=== PATIENT | male | born 1975 | race Caucasian/White ===

== ENCOUNTER 2016-11-18 16:37 | Emergency (ER) | payer SELFPAY ==
--- NOTE | 2016-11-18 17:56 | EDM.PDOC ---
ED HPI Trauma - General Chief Complaint: Lower Extremity Injury/Pain Stated Complaint: PT HURT LT LEG Time Seen by Provider: 11/18/16 17:10 Source: Reports: Patient History Limitations: Reports: No limitations - History of Present Illness INITIAL COMMENTS - FREE TEXT/NARRATIVE: History of present illness: [41-year-old male presenting with acute left foot pain status post dropping a washing machine on it. Patient is swollen, erythematous with generalized tenderness to touch. Exam consistent with crushing injury.] Review of systems: As per history of present illness and below otherwise all systems reviewed and negative. Past medical history: As per history of present illness and as reviewed below otherwise noncontributory. Surgical history: As per history of present illness and as reviewed below otherwise noncontributory. Social history: No reported history of drug or alcohol abuse. Family history: As per history of present illness and as reviewed below otherwise noncontributory. Physical exam: HEENT: Atraumatic, normocephalic, pupils reactive, negative for conjunctival pallor or scleral icterus, mucous membranes moist, throat clear, neck supple, nontender, trachea midline. Lungs: Clear to auscultation, breath sounds equal bilaterally, chest nontender. Heart: S1S2, regular, negative for clicks, rubs, or JVD. Abdomen: Soft, nondistended, nontender. Negative for masses or hepatosplenomegaly. Negative for costovertebral tenderness. Pelvis: Stable nontender. Genitourinary: Deferred. Rectal: Deferred. Extremities: Left foot noted to be slightly swollen and erythematous with point tenderness, negative for cords or calf pain. Neurovascular unremarkable. Neuro: Awake, alert, oriented. Cranial nerves II through XII unremarkable. Cerebellum unremarkable. Motor and sensory unremarkable throughout. Exam nonfocal. Diagnostics: [X-ray of the left foot] Therapeutics: [] Impression: [Contusion] Plan: [Adria wrap RICE] Definitive disposition and diagnosis as appropriate pending reevaluation and review of above. Allergies/ADRs: Allergies No Known Allergies Allergy (Verified 11/18/16 16:54) Home Medications: Ambulatory Orders . [No Known Home Meds] 04/22/15 [Confirmed 11/18/16] Past Medical History - Past Surgical History Other Musculoskeletal Surgeries/Procedures:: knee surgery Social & Family History - Tobacco Use Smoking Status *Q: Current Every Day Smoker Years of Tobacco use: 28 - Recreational Drug Use Recreational Drug Use: No Review of Systems - Review of Systems Review Of Systems: See Below (See history of present illness) Trauma Exam - Physical Exam Exam: See Below (See history of present illness) Course - Vital Signs Last Recorded V/S: Last Vital Signs Temp 37.1 C 11/18/16 16:56 Pulse 70 11/18/16 16:56 Resp 16 11/18/16 16:56 BP 118/78 11/18/16 16:56 Pulse Ox 96 11/18/16 16:56 - Orders/Labs/Meds Orders: Active Orders 24 hr Category Date Time Status Ankle Min 3V Lt [CR] Stat Exams 11/18/16 17:13 Taken Foot 2V Lt [CR] Stat Exams 11/18/16 17:13 Taken Departure - Departure Time of Disposition: 18:16 Disposition: Home, Self-Care 01 Condition: good Clinical Impression: Contusion Qualifiers: Encounter type: initial encounter Contusion area: foot Laterality: left Qualified Code(s): S90.32XA - Contusion of left foot, initial encounter Instructions: Crush Injury, Fingers or Toes, [id number] Referrals: PCP,Stacey [Primary Care Provider] - Maria E Choudhury PA [Physician Furniture Polisher] - Forms: ED Department Discharge Additional Instructions: The following information is given to patients seen in the emergency department who are being discharged to home. This information is to outline your options for follow-up care. We provide all patients seen in our emergency department with a follow-up referral. The need for follow-up, as well as the timing and circumstances, are variable depending upon the specifics of your emergency department visit. If you don't have a primary care physician on staff, we will provide you with a referral. We always advise you to contact your personal physician following an emergency department visit to inform them of the circumstance of the visit and for follow-up with them and/or the need for any referrals to a consulting specialist. The emergency department will also refer you to a specialist when appropriate. This referral assures that you have the opportunity for follow-up care with a specialist. All of these measure are taken in an effort to provide you with optimal care, which includes your follow-up. Under all circumstances we always encourage you to contact your private physician who remains a resource for coordinating your care. When calling for follow-up care, please make the office aware that this follow-up is from your recent emergency room visit. If for any reason you are refused follow-up, please contact the [facility] Emergency Department at and asked to speak to the emergency department charge nurse. Take pain medication as directed, use Adria wrap and crutches as demonstrated Rest your foot elevated as much as possible you may use ice for the next 72 hours no longer than 20 minutes at a time with a barrier between your scan and the ice. Use the Adria wrap for support and comfort Followup with PCP 1-2 days Return to ED as needed as discussed [facility] [address] [place] [id number] - My Orders Last 24 Hours: My Active Orders 11/18/16 17:13 Ankle Min 3V Lt [CR] Stat Foot 2V Lt [CR] Stat - Assessment/Plan Last 24 Hours: My Active Orders 11/18/16 17:13 Ankle Min 3V Lt [CR] Stat Foot 2V Lt [CR] Stat
[2016-11-18 18:34] VITALS: BP 116/70
--- NOTE | 2016-11-19 10:18 | CR ---
EXAM DATE: 11/18/16 PATIENT'S AGE: 41 Patient: CHAPARRO MORENO Facility: [place], [place] Site . Site : 1975 Study: XRay Extremity foot [id number]/11/2017 5:49:40 PM Ordering Physician: Doctor Dougherty Final Report: LEFT FOOT AND ANKLE INDICATION: Injury. COMPARISON: None. FINDINGS/IMPRESSION: Mild soft tissue swelling over the lateral malleolus and over the dorsum of the foot. No acute fracture or dislocation identified in the left foot or ankle. Dictated by David Montgomery MD @ 11/18/2016 5:59:22 PM Dictated by: David Montgomery MD @ 11/18/2016 18:00:25 (Electronic Signature) Report Signed by Proxy and Original Signed Document filed in the Medical Record. MTDD
--- NOTE | 2016-11-19 10:19 | CR ---
EXAM DATE: 11/18/16 PATIENT'S AGE: 41 Patient: CHAPARRO MORENO Facility: [place], [place] Site . Site : 1975 Study: XRay Extremity ankle [id number]/11/2017 5:50:00 PM Ordering Physician: Doctor Dougherty Final Report: LEFT FOOT AND ANKLE INDICATION: Injury. COMPARISON: None. FINDINGS/IMPRESSION: Mild soft tissue swelling over the lateral malleolus and over the dorsum of the foot. No acute fracture or dislocation identified in the left foot or ankle. Dictated by David Montgomery MD @ 11/18/2016 5:59:22 PM Dictated by: David Montgomery MD @ 11/18/2016 18:00:12 (Electronic Signature) Report Signed by Proxy and Original Signed Document filed in the Medical Record. MTDD
== END 2016-11-18 18:32 | disposition home or self-care (01) ==
LOC: MW.ED 16:37
DX: S90.32XA Contusion of left foot, initial encounter (principal); F17.200 Nicotine dependence, unspecified, uncomplicated; W20.8XXA Other cause of strike by thrown, projected or falling object, initial encounter
CPT/HCPCS: 73610-26-LT; 73610-LT; 73620-26-LT; 73620-LT; 99283

== ENCOUNTER 2017-02-18 15:37 | Emergency (ER) | payer SELFPAY ==
[2017-02-18] MEDS ORDERED: Benzocaine 20% Topical Spray UD MUCMEM ONE (15:47)
[2017-02-18] MEDS ORDERED: Lidocaine 2% Viscous Solution 15 ML Cup PO ONE (15:47)
--- NOTE | 2017-02-18 16:04 | EDM.PDOC ---
ED HPI GENERAL MEDICAL PROBLEM - General Chief Complaint: General Stated Complaint: TOOTH PAIN Time Seen by Provider: 02/18/17 15:40 Source of Information: Reports: Patient History Limitations: Reports: No Limitations - History of Present Illness INITIAL COMMENTS - FREE TEXT/NARRATIVE: History of present illness: [41-year-old male comes in complaining of dental abscess to right lower jaw. Patient has missing teeth at the area of 28 and 29 with obvious infection at the gumline.] Review of systems: As per history of present illness and below otherwise all systems reviewed and negative. Past medical history: As per history of present illness and as reviewed below otherwise noncontributory. Surgical history: As per history of present illness and as reviewed below otherwise noncontributory. Social history: No reported history of drug or alcohol abuse. Family history: As per history of present illness and as reviewed below otherwise noncontributory. Physical exam: HEENT: Atraumatic, normocephalic, pupils reactive, negative for conjunctival pallor or scleral icterus, mucous membranes moist, throat clear, neck supple, nontender, trachea midline. Lungs: Clear to auscultation, breath sounds equal bilaterally, chest nontender. Heart: S1S2, regular, negative for clicks, rubs, or JVD. Abdomen: Soft, nondistended, nontender. Negative for masses or hepatosplenomegaly. Negative for costovertebral tenderness. Pelvis: Stable nontender. Genitourinary: Deferred. Rectal: Deferred. Extremities: Atraumatic, negative for cords or calf pain. Neurovascular unremarkable. Neuro: Awake, alert, oriented. Cranial nerves II through XII unremarkable. Cerebellum unremarkable. Motor and sensory unremarkable throughout. Exam nonfocal. Skin: Right lower mandible with a 3 cm bump it is painful to touch and it is consistent with the area of infection at the gum. Patient knowledge need to get into [facility] but was looking for some assistance at this time save the abscess as noted above in the skin complaint patient's Global assessment is benign Diagnostics: [] Therapeutics: [Dental balls] Impression: [Dental abscess] Plan: [Antibiotics brief run of pain medication dental follow-up] Definitive disposition and diagnosis as appropriate pending reevaluation and review of above. Right Lower Tooth/Teeth Pain Score (Numeric/FACES): 7 - Related Data Allergies Allergy/AdvReac Type Severity Reaction Status Date / Time bee venom protein (honey bee) Allergy Anaphylactic Verified 11/18/16 18:23 Shock Home Meds: Home Meds Amoxicillin/Potassium Clav [Augmentin 875-125 Tablet] 1 each PO BID #20 tablet 02/18/17 [Rx] Past Medical History - Past Health History Medical/Surgical History: Denies Medical/Surgical History Gastrointestinal History: Reports: None Musculoskeletal History: Reports: None - Past Surgical History GI Surgical History: Reports: Hernia, Abdominal Musculoskeletal Surgical History: Reports: Other (See Below) Other Musculoskeletal Surgeries/Procedures:: left knee surgery Social & Family History - Family History Family Medical History: Noncontributory - Tobacco Use Smoking Status *Q: Current Every Day Smoker Years of Tobacco use: 30 Packs/Tins Daily: 0.1 Second Hand Smoke Exposure: Yes - Caffeine Use Caffeine Use: Reports: None - Alcohol Use Days Per Week of Alcohol Use: 2 Number of Drinks Per Day: 4 Total Drinks Per Week: 8 - Recreational Drug Use Recreational Drug Use: Yes Recreational Drug Type: Reports: Marijuana/Hashish Recreational Drug Use Frequency: Daily Recreational Drug Last Use: "today" ED ROS GENERAL - Review of Systems Review Of Systems: See Below (See history of present illness) ED EXAM, GENERAL - Physical Exam Exam: See Below (History of present illness) Course - Vital Signs Last Recorded V/S: Last Vital Signs Temp 36.4 C 02/18/17 15:42 Pulse 73 02/18/17 15:42 Resp 18 02/18/17 15:42 BP 123/79 02/18/17 15:42 Pulse Ox 95 02/18/17 15:42 - Orders/Labs/Meds Meds: Medications Discontinued Medications Generic Name Dose Route Start Last Admin Trade Name Fadi PRN Reason Stop Dose Admin Benzocaine 2 each 02/18/17 15:47 02/18/17 15:57 Hurricaine One 20% MUCMEM 02/18/17 15:48 2 each ONETIME ONE Administration Lidocaine HCl 15 ml 02/18/17 15:47 02/18/17 15:57 Xylocaine 2% Viscous PO 02/18/17 15:48 15 ml ONETIME ONE Administration Departure - Departure Time of Disposition: 16:03 Disposition: Home, Self-Care 01 Condition: Good Clinical Impression: Dental abscess - Discharge Information Prescriptions: Amoxicillin/Potassium Clav [Augmentin 875-125 Tablet] 1 each PO BID #20 tablet Forms: ED Department Discharge Additional Instructions: The following information is given to patients seen in the emergency department who are being discharged to home. This information is to outline your options for follow-up care. We provide all patients seen in our emergency department with a follow-up referral. The need for follow-up, as well as the timing and circumstances, are variable depending upon the specifics of your emergency department visit. If you don't have a primary care physician on staff, we will provide you with a referral. We always advise you to contact your personal physician following an emergency department visit to inform them of the circumstance of the visit and for follow-up with them and/or the need for any referrals to a consulting specialist. The emergency department will also refer you to a specialist when appropriate. This referral assures that you have the opportunity for follow-up care with a specialist. All of these measure are taken in an effort to provide you with optimal care, which includes your follow-up. Under all circumstances we always encourage you to contact your private physician who remains a resource for coordinating your care. When calling for follow-up care, please make the office aware that this follow-up is from your recent emergency room visit. If for any reason you are refused follow-up, please contact the [facility] Emergency Department at and asked to speak to the emergency department charge nurse. Take medication as discussed Follow-up with the dentist GLORIA Return to ED as needed as discussed
[2017-02-18 16:23] VITALS: BP 119/82
== END 2017-02-18 16:15 | disposition home or self-care (01) ==
LOC: MW.ED 15:37
DX: K04.7 Periapical abscess without sinus (principal); F17.210 Nicotine dependence, cigarettes, uncomplicated; Z91.030 Bee allergy status; Z98.890 Other specified postprocedural states
CPT/HCPCS: 99282; A9270; 99283

== ENCOUNTER 2017-09-28 07:40 | Emergency (ER) | payer SELFPAY ==
[2017-09-28 07:59] VITALS: BP 143/98
--- NOTE | 2017-09-28 08:01 | EDM.PDOC ---
ED HPI GENERAL MEDICAL PROBLEM - General Chief Complaint: General Stated Complaint: ABSCESSED TOOTH Time Seen by Provider: 09/28/17 07:41 - History of Present Illness INITIAL COMMENTS - FREE TEXT/NARRATIVE: HISTORY AND PHYSICAL: History of present illness: Patient 42-year-old male presents with a concern of dental pain and right jaw swelling is been worse over last several days he denies fever chills nausea vomiting or other complaints he denies allergies not secured a dental appointment as of yet Review of systems: As per history of present illness and below otherwise all systems reviewed and negative. Past medical history: As per history of present illness and as reviewed below otherwise noncontributory. Surgical history: As per history of present illness and as reviewed below otherwise noncontributory. Social history: No reported history of drug or alcohol abuse. Family history: As per history of present illness and as reviewed below otherwise noncontributory. Physical exam: HEENT: Atraumatic, normocephalic, pupils reactive, negative for conjunctival pallor or scleral icterus, mucous membranes moist, throat clear, neck supple, nontender, trachea midline. Generally poor dentition with multiple dental caries noted gingival edema in the region of the right lower molar and right mandibular swelling Lungs: Clear to auscultation, breath sounds equal bilaterally, chest nontender. Heart: S1S2, regular, negative for clicks, rubs, or JVD. Abdomen: Soft, nondistended, nontender. Negative for masses or hepatosplenomegaly. Negative for costovertebral tenderness. Pelvis: Stable nontender. Genitourinary: Deferred. Rectal: Deferred. Extremities: Atraumatic, negative for cords or calf pain. Neurovascular unremarkable. Neuro: Awake, alert, oriented. Cranial nerves II through XII unremarkable. Cerebellum unremarkable. Motor and sensory unremarkable throughout. Exam nonfocal. Diagnostics: None Therapeutics: None Impression: Over 1 dentalgia #2 multiple dental caries #3 dental abscess Definitive disposition and diagnosis as appropriate pending reevaluation and review of above. Right Lower Tooth/Teeth Pain Score (Numeric/FACES): 5 - Related Data Allergies Allergy/AdvReac Type Severity Reaction Status Date / Time bee venom protein (honey bee) Allergy Anaphylactic Verified 09/28/17 07:47 Shock Home Meds: Home Meds . [No Known Home Meds] 09/28/17 [History] Past Medical History - Past Health History Medical/Surgical History: Denies Medical/Surgical History Gastrointestinal History: Reports: None Musculoskeletal History: Reports: None - Past Surgical History GI Surgical History: Reports: Hernia, Abdominal Musculoskeletal Surgical History: Reports: Other (See Below) Other Musculoskeletal Surgeries/Procedures:: left knee surgery Social & Family History - Family History Family Medical History: Noncontributory - Tobacco Use Smoking Status *Q: Current Every Day Smoker Years of Tobacco use: 30 Packs/Tins Daily: 0.1 Second Hand Smoke Exposure: Yes - Caffeine Use Caffeine Use: Reports: None - Alcohol Use Days Per Week of Alcohol Use: 2 Number of Drinks Per Day: 4 Total Drinks Per Week: 8 - Recreational Drug Use Recreational Drug Use: Yes Recreational Drug Type: Reports: Marijuana/Hashish Recreational Drug Use Frequency: Daily Recreational Drug Last Use: "today" ED ROS GENERAL - Review of Systems Review Of Systems: ROS reveals no pertinent complaints other than HPI. ED EXAM, GENERAL - Physical Exam Exam: See Below (See dictation) Course - Vital Signs Last Recorded V/S: Last Vital Signs Temp 37.8 C 09/28/17 07:48 Pulse 90 09/28/17 07:48 Resp 20 09/28/17 07:48 BP 143/98 H 09/28/17 07:48 Pulse Ox 94 L 09/28/17 07:48 Departure - Departure Time of Disposition: 08:00 Disposition: Home, Self-Care 01 Condition: Good Clinical Impression: Dentalgia, Dental abscess - Discharge Information Referrals: PCP,None [Primary Care Provider] - Additional Instructions: The following information is given to patients seen in the emergency department who are being discharged to home. This information is to outline your options for follow-up care. We provide all patients seen in our emergency department with a follow-up referral. The need for follow-up, as well as the timing and circumstances, are variable depending upon the specifics of your emergency department visit. If you don't have a primary care physician on staff, we will provide you with a referral. We always advise you to contact your personal physician following an emergency department visit to inform them of the circumstance of the visit and for follow-up with them and/or the need for any referrals to a consulting specialist. The emergency department will also refer you to a specialist when appropriate. This referral assures that you have the opportunity for followup care with a specialist. All of these measure are taken in an effort to provide you with optimal care, which includes your followup. Under all circumstances we always encourage you to contact your private physician who remains a resource for coordinating your care. When calling for followup care, please make the office aware that this follow-up is from your recent emergency room visit. If for any reason you are refused follow-up, please contact the [facility] emergency department at and asked to speak to the emergency department charge nurse. James Caro Tylenol 3 as prescribed follow-up dentist as discussed return as needed as discussed
== END 2017-09-28 08:07 | disposition home or self-care (01) ==
LOC: MW.ED 07:40
DX: K04.7 Periapical abscess without sinus (principal); K02.9 Dental caries, unspecified; F17.210 Nicotine dependence, cigarettes, uncomplicated; Z91.030 Bee allergy status
CPT/HCPCS: 99282

== ENCOUNTER 2017-10-04 07:17 | Emergency (ER) | payer SELFPAY ==
[2017-10-04 07:43] VITALS: BP 138/95
--- NOTE | 2017-10-04 08:14 | EDM.PDOC ---
ED HPI GENERAL MEDICAL PROBLEM - General Chief Complaint: ENT Problem Stated Complaint: ABCESSED TOOTH Time Seen by Provider: 10/04/17 07:25 - History of Present Illness INITIAL COMMENTS - FREE TEXT/NARRATIVE: HISTORY AND PHYSICAL: History of present illness: Patient is 42-year-old male presents with a concern of right jaw swelling dental abscess he was seen approximately 1 week prior nonpenicillin he's also been on Tylenol 3 he is not secured dental follow-up there's been no fever chills nausea vomiting or other complaints Review of systems: As per history of present illness and below otherwise all systems reviewed and negative. Past medical history: As per history of present illness and as reviewed below otherwise noncontributory. Surgical history: As per history of present illness and as reviewed below otherwise noncontributory. Social history: No reported history of drug or alcohol abuse. Family history: As per history of present illness and as reviewed below otherwise noncontributory. Physical exam: HEENT: Atraumatic, normocephalic, pupils reactive, negative for conjunctival pallor or scleral icterus, mucous membranes moist, throat clear, neck supple, nontender, trachea midline. Generally poor dentition multiple dental caries noted right mandibular swelling Lungs: Clear to auscultation, breath sounds equal bilaterally, chest nontender. Heart: S1S2, regular, negative for clicks, rubs, or JVD. Abdomen: Soft, nondistended, nontender. Negative for masses or hepatosplenomegaly. Negative for costovertebral tenderness. Pelvis: Stable nontender. Genitourinary: Deferred. Rectal: Deferred. Extremities: Atraumatic, negative for cords or calf pain. Neurovascular unremarkable. Neuro: Awake, alert, oriented. Cranial nerves II through XII unremarkable. Cerebellum unremarkable. Motor and sensory unremarkable throughout. Exam nonfocal. Diagnostics: None Therapeutics: None Impression: #1 dentalgia #2 dental abscess #3 medical noncompliance Definitive disposition and diagnosis as appropriate pending reevaluation and review of above. dental pain Pain Score (Numeric/FACES): 7 - Related Data Allergies Allergy/AdvReac Type Severity Reaction Status Date / Time bee venom protein (honey bee) Allergy Anaphylactic Verified 10/04/17 07:22 Shock Home Meds: Home Meds . [Unable to Verify Home Med List] 10/04/17 [History] Past Medical History - Past Health History Medical/Surgical History: Denies Medical/Surgical History HEENT History: Reports: None Cardiovascular History: Reports: None Respiratory History: Reports: None Gastrointestinal History: Reports: None Genitourinary History: Reports: None Musculoskeletal History: Reports: None Neurological History: Reports: None Psychiatric History: Reports: None Endocrine/Metabolic History: Reports: None Hematologic History: Reports: None Immunologic History: Reports: None Oncologic (Cancer) History: Reports: None Dermatologic History: Reports: None - Past Surgical History Head Surgeries/Procedures: Reports: None HEENT Surgical History: Reports: None Cardiovascular Surgical History: Reports: None Respiratory Surgical History: Reports: None GI Surgical History: Reports: Hernia, Abdominal Male Surgical History: Reports: None Endocrine Surgical History: Reports: None Neurological Surgical History: Reports: None Musculoskeletal Surgical History: Reports: Other (See Below) Other Musculoskeletal Surgeries/Procedures:: left knee surgery Oncologic Surgical History: Reports: None Dermatological Surgical History: Reports: None Social & Family History - Family History Family Medical History: Noncontributory - Tobacco Use Smoking Status *Q: Current Every Day Smoker Years of Tobacco use: 15 Packs/Tins Daily: 0.5 Second Hand Smoke Exposure: Yes - Caffeine Use Caffeine Use: Reports: Soda - Alcohol Use Days Per Week of Alcohol Use: 2 Number of Drinks Per Day: 4 Total Drinks Per Week: 8 - Recreational Drug Use Recreational Drug Use: Yes Recreational Drug Type: Reports: Marijuana/Hashish Recreational Drug Use Frequency: Weekly Recreational Drug Last Use: "today" ED ROS GENERAL - Review of Systems Review Of Systems: ROS reveals no pertinent complaints other than HPI. ED EXAM, GENERAL - Physical Exam Exam: See Below (See dictation) Course - Vital Signs Last Recorded V/S: Last Vital Signs Temp 36.2 C 10/04/17 07:26 Pulse 85 10/04/17 07:42 Resp 18 10/04/17 07:26 BP 138/95 H 10/04/17 07:42 Pulse Ox 97 10/04/17 07:26 Departure - Departure Time of Disposition: 08:13 Disposition: Home, Self-Care 01 Condition: Good Clinical Impression: Dental abscess, Dental caries, Medical non-compliance - Discharge Information Instructions: Dental Abscess, [id number] Referrals: PCP,None [Primary Care Provider] - Forms: ED Department Discharge Additional Instructions: The following information is given to patients seen in the emergency department who are being discharged to home. This information is to outline your options for follow-up care. We provide all patients seen in our emergency department with a follow-up referral. The need for follow-up, as well as the timing and circumstances, are variable depending upon the specifics of your emergency department visit. If you don't have a primary care physician on staff, we will provide you with a referral. We always advise you to contact your personal physician following an emergency department visit to inform them of the circumstance of the visit and for follow-up with them and/or the need for any referrals to a consulting specialist. The emergency department will also refer you to a specialist when appropriate. This referral assures that you have the opportunity for followup care with a specialist. All of these measure are taken in an effort to provide you with optimal care, which includes your followup. Under all circumstances we always encourage you to contact your private physician who remains a resource for coordinating your care. When calling for followup care, please make the office aware that this follow-up is from your recent emergency room visit. If for any reason you are refused follow-up, please contact the [facility] emergency department at and asked to speak to the emergency department charge nurse. Clindamycin as prescribed Motrin/Tylenol as directed follow-up dentist GLORIA as discussed return as needed as discussed
== END 2017-10-04 08:10 | disposition home or self-care (01) ==
LOC: MW.ED 07:17
DX: K04.7 Periapical abscess without sinus (principal); K02.9 Dental caries, unspecified; Z91.14 Patient's other noncompliance with medication regimen; F17.210 Nicotine dependence, cigarettes, uncomplicated; Z91.030 Bee allergy status
CPT/HCPCS: 99282

== ENCOUNTER 2018-11-01 17:21 | Emergency (ER) | payer SELFPAY ==
--- NOTE | 2018-11-01 17:33 | EDM.PDOC ---
ED HPI GENERAL MEDICAL PROBLEM - General Chief Complaint: General Stated Complaint: MEDICAL CLEARANCE Time Seen by Provider: 11/01/18 17:30 - History of Present Illness INITIAL COMMENTS - FREE TEXT/NARRATIVE: HISTORY AND PHYSICAL: History of present illness: Patient's 43-year-old white male in custody of law enforcement who presents for medical clearance patient is without complaints Review of systems: As per history of present illness and below otherwise all systems reviewed and negative. Past medical history: As per history of present illness and as reviewed below otherwise noncontributory. Surgical history: As per history of present illness and as reviewed below otherwise noncontributory. Social history: No reported history of drug or alcohol abuse. Family history: As per history of present illness and as reviewed below otherwise noncontributory. Physical exam: HEENT: Atraumatic, normocephalic, pupils reactive, negative for conjunctival pallor or scleral icterus, mucous membranes moist, throat clear, neck supple, nontender, trachea midline. Lungs: Clear to auscultation, breath sounds equal bilaterally, chest nontender. Heart: S1S2, regular, negative for clicks, rubs, or JVD. Abdomen: Soft, nondistended, nontender. Negative for masses or hepatosplenomegaly. Negative for costovertebral tenderness. Pelvis: Stable nontender. Genitourinary: Deferred. Rectal: Deferred. Extremities: Atraumatic, negative for cords or calf pain. Neurovascular unremarkable. Neuro: Awake, alert, oriented. Cranial nerves II through XII unremarkable. Cerebellum unremarkable. Motor and sensory unremarkable throughout. Exam nonfocal. Diagnostics: None Therapeutics: None Impression: Medically clear for incarceration Definitive disposition and diagnosis as appropriate pending reevaluation and review of above. - Related Data Allergies Allergy/AdvReac Type Severity Reaction Status Date / Time bee venom protein (honey bee) Allergy Anaphylactic Verified 10/04/17 07:22 Shock Home Meds: Home Meds . [Unable to Verify Home Med List] 10/04/17 [History] Past Medical History - Past Health History Medical/Surgical History: Denies Medical/Surgical History HEENT History: Reports: None Cardiovascular History: Reports: None Respiratory History: Reports: None Gastrointestinal History: Reports: None Genitourinary History: Reports: None Musculoskeletal History: Reports: None Neurological History: Reports: None Psychiatric History: Reports: None Endocrine/Metabolic History: Reports: None Hematologic History: Reports: None Immunologic History: Reports: None Oncologic (Cancer) History: Reports: None Dermatologic History: Reports: None - Past Surgical History Head Surgeries/Procedures: Reports: None HEENT Surgical History: Reports: None Cardiovascular Surgical History: Reports: None Respiratory Surgical History: Reports: None GI Surgical History: Reports: Hernia, Abdominal Male Surgical History: Reports: None Endocrine Surgical History: Reports: None Neurological Surgical History: Reports: None Musculoskeletal Surgical History: Reports: Other (See Below) Other Musculoskeletal Surgeries/Procedures:: left knee surgery Oncologic Surgical History: Reports: None Dermatological Surgical History: Reports: None Social & Family History - Family History Family Medical History: Noncontributory - Caffeine Use Caffeine Use: Reports: Soda ED ROS GENERAL - Review of Systems Review Of Systems: ROS reveals no pertinent complaints other than HPI. ED EXAM, GENERAL - Physical Exam Exam: See Below (Dictation) Departure - Departure Time of Disposition: 17:32 Disposition: Home, Self-Care 01 Condition: Good Clinical Impression: Medical clearance for incarceration - Discharge Information Additional Instructions: The following information is given to patients seen in the emergency department who are being discharged to home. This information is to outline your options for follow-up care. We provide all patients seen in our emergency department with a follow-up referral. The need for follow-up, as well as the timing and circumstances, are variable depending upon the specifics of your emergency department visit. If you don't have a primary care physician on staff, we will provide you with a referral. We always advise you to contact your personal physician following an emergency department visit to inform them of the circumstance of the visit and for follow-up with them and/or the need for any referrals to a consulting specialist. The emergency department will also refer you to a specialist when appropriate. This referral assures that you have the opportunity for followup care with a specialist. All of these measure are taken in an effort to provide you with optimal care, which includes your followup. Under all circumstances we always encourage you to contact your private physician who remains a resource for coordinating your care. When calling for followup care, please make the office aware that this follow-up is from your recent emergency room visit. If for any reason you are refused follow-up, please contact the [facility] emergency department at and asked to speak to the emergency department charge nurse. Follow-up primary medical doctor as needed as discussed return as needed as discussed
== END 2018-11-01 17:39 | disposition home or self-care (01) ==
LOC: MW.ED 17:21
DX: Z02.89 Encounter for other administrative examinations (principal); Z91.030 Bee allergy status
CPT/HCPCS: 99282

== ENCOUNTER 2018-11-02 20:04 | Emergency (ER) | payer SELFPAY ==
[2018-11-02 20:24] VITALS: BP 146/100
--- NOTE | 2018-11-02 20:25 | EDM.PDOC ---
ED HPI GENERAL MEDICAL PROBLEM - General Chief Complaint: General Stated Complaint: PT HAS BODY PAIN Time Seen by Provider: 11/02/18 20:14 - History of Present Illness INITIAL COMMENTS - FREE TEXT/NARRATIVE: HISTORY AND PHYSICAL: History of present illness: Patient's 43-year-old white male presents for medical screening exam he was arrested yesterday and was concerned about pain to his bilateral forearms right elbow lower back. Review of systems: As per history of present illness and below otherwise all systems reviewed and negative. Past medical history: As per history of present illness and as reviewed below otherwise noncontributory. Surgical history: As per history of present illness and as reviewed below otherwise noncontributory. Social history: No reported history of drug or alcohol abuse. Family history: As per history of present illness and as reviewed below otherwise noncontributory. Physical exam: HEENT: Atraumatic, normocephalic, pupils reactive, negative for conjunctival pallor or scleral icterus, mucous membranes moist, throat clear, neck supple, nontender, trachea midline. Lungs: Clear to auscultation, breath sounds equal bilaterally, chest nontender. Heart: S1S2, regular, negative for clicks, rubs, or JVD. Abdomen: Soft, nondistended, nontender. Negative for masses or hepatosplenomegaly. Negative for costovertebral tenderness. Pelvis: Stable nontender. Genitourinary: Deferred. Rectal: Deferred. Extremities: Patient has abrasions and contusions of his right forearm some minor contusions of his left forearm he got some swelling in the region of this right elbow he's had no crepitation or point tenderness. Neuro: Awake, alert, oriented. Cranial nerves II through XII unremarkable. Cerebellum unremarkable. Motor and sensory unremarkable throughout. Exam nonfocal. Back: Patient has no vertebral body or point tenderness is got some mild paravertebral tenderness at the level lumbar spine. Diagnostics: Patient declines diagnostic Therapeutics: None Impression: #1 medical screening exam #2 multiple contusions/abrasions Definitive disposition and diagnosis as appropriate pending reevaluation and review of above. - Related Data Allergies Allergy/AdvReac Type Severity Reaction Status Date / Time bee venom protein (honey bee) Allergy Anaphylactic Verified 10/04/17 07:22 Shock Home Meds: Home Meds . [No Known Home Meds] 11/02/18 [History] Past Medical History - Past Health History Medical/Surgical History: Denies Medical/Surgical History HEENT History: Reports: None Cardiovascular History: Reports: None Respiratory History: Reports: None Gastrointestinal History: Reports: None Genitourinary History: Reports: None Musculoskeletal History: Reports: None Neurological History: Reports: None Psychiatric History: Reports: None Endocrine/Metabolic History: Reports: None Hematologic History: Reports: None Immunologic History: Reports: None Oncologic (Cancer) History: Reports: None Dermatologic History: Reports: None - Past Surgical History Head Surgeries/Procedures: Reports: None HEENT Surgical History: Reports: None Cardiovascular Surgical History: Reports: None Respiratory Surgical History: Reports: None GI Surgical History: Reports: Hernia, Abdominal Male Surgical History: Reports: None Endocrine Surgical History: Reports: None Neurological Surgical History: Reports: None Musculoskeletal Surgical History: Reports: Other (See Below) Other Musculoskeletal Surgeries/Procedures:: left knee surgery Oncologic Surgical History: Reports: None Dermatological Surgical History: Reports: None Social & Family History - Family History Family Medical History: Noncontributory - Caffeine Use Caffeine Use: Reports: Soda ED ROS GENERAL - Review of Systems Review Of Systems: ROS reveals no pertinent complaints other than HPI. ED EXAM, GENERAL - Physical Exam Exam: See Below (See dictation) Departure - Departure Time of Disposition: 20:24 Disposition: Home, Self-Care 01 Condition: Good Clinical Impression: Encounter for medical screening examination, Multiple contusions, Abrasion - Discharge Information Referrals: PCP,None [Primary Care Provider] - Additional Instructions: The following information is given to patients seen in the emergency department who are being discharged to home. This information is to outline your options for follow-up care. We provide all patients seen in our emergency department with a follow-up referral. The need for follow-up, as well as the timing and circumstances, are variable depending upon the specifics of your emergency department visit. If you don't have a primary care physician on staff, we will provide you with a referral. We always advise you to contact your personal physician following an emergency department visit to inform them of the circumstance of the visit and for follow-up with them and/or the need for any referrals to a consulting specialist. The emergency department will also refer you to a specialist when appropriate. This referral assures that you have the opportunity for followup care with a specialist. All of these measure are taken in an effort to provide you with optimal care, which includes your followup. Under all circumstances we always encourage you to contact your private physician who remains a resource for coordinating your care. When calling for followup care, please make the office aware that this follow-up is from your recent emergency room visit. If for any reason you are refused follow-up, please contact the [facility] emergency department at and asked to speak to the emergency department charge nurse. Follow-up primary medical doctor as needed as discussed return as needed as discussed Motrin/Tylenol as directed
== END 2018-11-02 20:41 | disposition home or self-care (01) ==
LOC: MW.ED 20:04
DX: S50.12XA Contusion of left forearm, initial encounter (principal); S50.11XA Contusion of right forearm, initial encounter; M25.421 Effusion, right elbow; Z91.030 Bee allergy status; X58.XXXA Exposure to other specified factors, initial encounter
CPT/HCPCS: 99283

== ENCOUNTER 2019-04-13 16:38 | Emergency (ER) | payer SELFPAY ==
--- NOTE | 2019-04-13 16:50 | EDM.PDOC ---
ED HPI GENERAL MEDICAL PROBLEM - General Chief Complaint: General Stated Complaint: TOOTHACHE Time Seen by Provider: 04/13/19 16:45 Source of Information: Reports: Patient History Limitations: Reports: No Limitations - History of Present Illness INITIAL COMMENTS - FREE TEXT/NARRATIVE: HISTORY AND PHYSICAL: History of present illness: Patient is a 43-year-old male who presents to the emergency room today with complaints of dental abscess 3 or 4 days. Patient does have multiple dental caries throughout. Has noticed some soft tissue swelling and pain to the right upper dental line. Patient denies any fever, chills, headache, change in vision , syncope or near syncope. Denies any chest pain, back pain, shortness of breath or cough. Denies any abdominal pain, nausea, vomiting, diarrhea, constipation or dysuria. Has not noted any blood in urine or stool. Patient has been eating and drinking appropriately. Review of systems: As per history of present illness and below otherwise all systems reviewed and negative. Past medical history: As per history of present illness and as reviewed below otherwise noncontributory. Surgical history: As per history of present illness and as reviewed below otherwise noncontributory. Social history: See social history for further information Family history: As per history of present illness and as reviewed below otherwise noncontributory. Physical exam: General: Well-developed and well-nourished 43-year-old male. Alert and oriented. Nontoxic appearing and in no acute distress. HEENT: Atraumatic, normocephalic, pupils equal and reactive bilaterally, negative for conjunctival pallor or scleral icterus, mucous membranes moist, TMs normal bilaterally, multiple dental caries noted throughout, he does have soft tissue gum swelling to the right upper posterior jawline, this is visible externally. His throat clear, neck supple, nontender, trachea midline. No drooling or trismus noted. No meningeal signs. No hot potato voice noted. Lungs: Clear to auscultation, breath sounds equal bilaterally, chest nontender. Heart: S1S2, regular rate and rhythm without overt murmur Abdomen: Soft, nondistended, nontender. Skin: Intact, warm, dry. No lesions or rashes noted. Extremities: Atraumatic, moves all extremities per self without difficulty or deficits, negative for cords or calf pain. Neurovascular unremarkable. Neuro: Awake, alert, oriented. Cranial nerves II through XII unremarkable. Cerebellum unremarkable. Motor and sensory unremarkable throughout. Exam nonfocal. Notes: We discussed the importance of following up with a dentist. Supportive care measures were reviewed and discussed. Voices understanding and is agreeable to plan of care. Denies any further questions or concerns at this time. Diagnostics: None Therapeutics: Dental Abscess Prescription: Clindamycin Impression: Dental Abscess Dental Carries Plan: 1. Please take the antibiotic as prescribed. 2. Tylenol and/or ibuprofen as needed for pain management. "Tooth Balls" have been given to you; apply along the gumline every 2-3 hours as needed. Do not swallow these; external use only. 3. Follow-up with a dentist for definitive care. Return to the ED as needed and as discussed. Definitive disposition and diagnosis as appropriate pending reevaluation and review of above. - Related Data Allergies Allergy/AdvReac Type Severity Reaction Status Date / Time bee venom protein (honey bee) Allergy Anaphylactic Verified 10/04/17 07:22 Shock Home Meds: Home Meds Clindamycin HCl [Cleocin HCl] 300 mg PO TID 10 Days #30 capsule 04/13/19 [Rx] Past Medical History - Past Health History Medical/Surgical History: Denies Medical/Surgical History HEENT History: Reports: None Cardiovascular History: Reports: None Respiratory History: Reports: None Gastrointestinal History: Reports: None Genitourinary History: Reports: None Musculoskeletal History: Reports: None Neurological History: Reports: None Psychiatric History: Reports: None Endocrine/Metabolic History: Reports: None Hematologic History: Reports: None Immunologic History: Reports: None Oncologic (Cancer) History: Reports: None Dermatologic History: Reports: None - Infectious Disease History Infectious Disease History: Reports: Chicken Pox - Past Surgical History Head Surgeries/Procedures: Reports: None HEENT Surgical History: Reports: None Cardiovascular Surgical History: Reports: None Respiratory Surgical History: Reports: None GI Surgical History: Reports: Hernia, Abdominal Male Surgical History: Reports: None Endocrine Surgical History: Reports: None Neurological Surgical History: Reports: None Musculoskeletal Surgical History: Reports: Other (See Below) Other Musculoskeletal Surgeries/Procedures:: left knee surgery Oncologic Surgical History: Reports: None Dermatological Surgical History: Reports: None Social & Family History - Family History Family Medical History: Noncontributory - Caffeine Use Caffeine Use: Reports: Soda ED ROS GENERAL - Review of Systems Review Of Systems: ROS reveals no pertinent complaints other than HPI. ED EXAM, GENERAL - Physical Exam Exam: See Below (See dictation) Course - Orders/Labs/Meds Meds: Medications Discontinued Medications Generic Name Dose Route Start Last Admin Trade Name Fadi PRN Reason Stop Dose Admin Benzocaine 2 each 04/13/19 16:45 Hurricaine One 20% MUCMEM 04/13/19 16:46 ONETIME ONE Lidocaine HCl 15 ml 04/13/19 16:45 Xylocaine 2% Viscous PO 04/13/19 16:46 ONETIME ONE Departure - Departure Time of Disposition: 16:49 Disposition: Home, Self-Care 01 Clinical Impression: Dental abscess, Dental caries - Discharge Information Prescriptions: Clindamycin HCl [Cleocin HCl] 300 mg PO TID 10 Days #30 capsule Instructions: Dental Abscess, [id number] Referrals: PCP,None [Primary Care Provider] - Forms: ED Department Discharge Additional Instructions: The following information is given to patients seen in the emergency department who are being discharged to home. This information is to outline your options for follow-up care. We provide all patients seen in our emergency department with a follow-up referral. The need for follow-up, as well as the timing and circumstances, are variable depending upon the specifics of your emergency department visit. If you don't have a primary care physician on staff, we will provide you with a referral. We always advise you to contact your personal physician following an emergency department visit to inform them of the circumstance of the visit and for follow-up with them and/or the need for any referrals to a consulting specialist. The emergency department will also refer you to a specialist when appropriate. This referral assures that you have the opportunity for follow-up care with a specialist. All of these measure are taken in an effort to provide you with optimal care, which includes your follow-up. Under all circumstances we always encourage you to contact your private physician who remains a resource for coordinating your care. When calling for follow-up care, please make the office aware that this follow-up is from your recent emergency room visit. If for any reason you are refused follow-up, please contact the [facility] Emergency Department at and asked to speak to the emergency department charge nurse. [facility] [address] [place] [address] [facility] [address] [place] [address] 1. Please take the antibiotic as prescribed. 2. Tylenol and/or ibuprofen as needed for pain management. "Tooth Balls" have been given to you; apply along the gumline every 2-3 hours as needed. Do not swallow these; external use only. 3. Follow-up with a dentist for definitive care. Return to the ED as needed and as discussed.
[2019-04-13] MEDS: Benzocaine 20% Topical Spray UD MUCMEM ONE (16:56)
[2019-04-13] MEDS: Lidocaine 2% Viscous Solution 15 ML Cup PO ONE (16:56)
[2019-04-13 17:05] VITALS: BP 155/107
== END 2019-04-13 17:07 | disposition home or self-care (01) ==
LOC: MW.ED 16:38
DX: K04.7 Periapical abscess without sinus (principal); K02.9 Dental caries, unspecified; Z91.030 Bee allergy status
CPT/HCPCS: 99283; A9270

== ENCOUNTER 2019-05-13 03:24 | Emergency (ER) | payer SELFPAY ==
--- NOTE | 2019-05-13 03:42 | EDM.PDOC ---
ED HPI GENERAL MEDICAL PROBLEM - General Chief Complaint: General Stated Complaint: MEDICAL CLEARANCE Time Seen by Provider: 05/13/19 03:25 - History of Present Illness INITIAL COMMENTS - FREE TEXT/NARRATIVE: HISTORY AND PHYSICAL: History of present illness: Patient is a 44-year-old male who presents with police for medical screening exam and admits to drinking alcohol tonight. He is not very cooperative here and does not want an exam or evaluation and says he is "being held against his will". He denies any medical history and says he has no complaints of chest pain abdominal pain nausea vomiting or shortness of breath. Review of systems: As per history of present illness and below otherwise all systems reviewed and negative. Past medical history: As per history of present illness and as reviewed below otherwise noncontributory. Surgical history: As per history of present illness and as reviewed below otherwise noncontributory. Social history: No reported history of drug or alcohol abuse. Family history: As per history of present illness and as reviewed below otherwise noncontributory. Physical exam: General: Well-developed well-nourished man who is refusing vital signs to be performed and any physical exam. He is speaking without hoarse or muffled voice HEENT: Atraumatic, normocephalic, pupils reactive, negative for conjunctival pallor or scleral icterus, mucous membranes moist, visually there is no facial swelling defects or deformities Lungs: Patient refused Heart: Patient refused Abdomen: Patient refused Pelvis: Deferred Genitourinary: Deferred. Rectal: Deferred. Extremities: Atraumatic, appearing and patient is in handcuffs Neuro: Awake, alert, speaking without hoarse or muffled voice and patient ambulated into the ED and is moving all extremities spontaneously. Exam nonfocal. Diagnostics: Patient refused Accu-Chek Therapeutics: [] Impression: Medical screening exam Definitive disposition and diagnosis as appropriate pending reevaluation and review of above. - Related Data Allergies Allergy/AdvReac Type Severity Reaction Status Date / Time bee venom protein (honey bee) Allergy Mild Anaphylactic Verified 04/13/19 17:03 Shock Home Meds: Home Meds . [No Known Home Meds] 04/13/19 [History] Past Medical History - Past Health History Medical/Surgical History: Denies Medical/Surgical History HEENT History: Reports: None Cardiovascular History: Reports: None Respiratory History: Reports: None Gastrointestinal History: Reports: None Genitourinary History: Reports: None Musculoskeletal History: Reports: None Neurological History: Reports: None Psychiatric History: Reports: None Endocrine/Metabolic History: Reports: None Hematologic History: Reports: None Immunologic History: Reports: None Oncologic (Cancer) History: Reports: None Dermatologic History: Reports: None - Infectious Disease History Infectious Disease History: Reports: Chicken Pox - Past Surgical History Head Surgeries/Procedures: Reports: None HEENT Surgical History: Reports: None Cardiovascular Surgical History: Reports: None Respiratory Surgical History: Reports: None GI Surgical History: Reports: Hernia, Abdominal Male Surgical History: Reports: None Endocrine Surgical History: Reports: None Neurological Surgical History: Reports: None Musculoskeletal Surgical History: Reports: Other (See Below) Other Musculoskeletal Surgeries/Procedures:: left knee surgery Oncologic Surgical History: Reports: None Dermatological Surgical History: Reports: None Social & Family History - Family History Family Medical History: Noncontributory - Caffeine Use Caffeine Use: Reports: Soda ED ROS GENERAL - Review of Systems Review Of Systems: ROS reveals no pertinent complaints other than HPI. ED EXAM, GENERAL - Physical Exam Exam: See Below (see dictation) Departure - Departure Time of Disposition: 03:42 Disposition: DC/Tfer to Court of Law En 21 Condition: Good Clinical Impression: Encounter for medical screening examination - Discharge Information Additional Instructions: The following information is given to patients seen in the emergency department who are being discharged to home. This information is to outline your options for follow-up care. We provide all patients seen in our emergency department with a follow-up referral. The need for follow-up, as well as the timing and circumstances, are variable depending upon the specifics of your emergency department visit. If you don't have a primary care physician on staff, we will provide you with a referral. We always advise you to contact your personal physician following an emergency department visit to inform them of the circumstance of the visit and for follow-up with them and/or the need for any referrals to a consulting specialist. The emergency department will also refer you to a specialist when appropriate. This referral assures that you have the opportunity for followup care with a specialist. All of these measure are taken in an effort to provide you with optimal care, which includes your followup. Under all circumstances we always encourage you to contact your private physician who remains a resource for coordinating your care. When calling for followup care, please make the office aware that this follow-up is from your recent emergency room visit. If for any reason you are refused follow-up, please contact the [facility] emergency department at and ask to speak to the emergency department charge nurse. [facility] Primary care- Internal Medicine and Family [address] [address] Call and follow-up with one of our clinic providers as you choose when you're available and return to ER as needed and as discussed
== END 2019-05-13 03:50 ==
LOC: MW.ED 03:24
DX: Z00.00 Encounter for general adult medical examination without abnormal findings (principal); Z91.030 Bee allergy status
CPT/HCPCS: 99282; 99283

== ENCOUNTER 2019-11-17 08:04 | Emergency (ER) | payer SELFPAY ==
--- NOTE | 2019-11-17 08:42 | EDM.PDOC ---
ED HPI GENERAL MEDICAL PROBLEM - General Chief Complaint: Respiratory Problem Stated Complaint: COUGHING/SORE THROAT Time Seen by Provider: 11/17/19 08:09 - History of Present Illness INITIAL COMMENTS - FREE TEXT/NARRATIVE: HPI 44-year-old male smoker presents for evaluation of a sore throat and infrequent nonproductive cough of days duration. No fevers or chills. Denies rash, neck stiffness, headache, changes in vision or hearing, or ear pain. Triage note: Pt states that he started coughing last night and today he has a cough and sore throat. Pt states "I want it checked out so if it is ramirez virus I can take what I need and do not spread it". Pt denies travel and recent fever. M/S/F/SocHx notable for: please see HPI; remainder reviewed with patient and in chart. ROS: Negative constitutional, eye, cardiovascular, pulmonary, GI, , MSK, skin , neurologic, psychiatric, endocrine unless noted in the HPI. Exam HR 79, BP 133/89, RR 18, T 35.9C, SaO2 96 % on room air; at 8:24 AM. Gen: Pleasant, non-toxic appearing, resting comfortably. HEENT: Normocephalic, atraumatic. * Eyes - Bilateral eyes without injection, swelling, or discharge, no proptosis or periorbital erythema, swelling, warmth, or tenderness. * Mouth - Anterior oropharynx with MMM, no lesions appreciated, floor of the mouth is soft and without swelling. Posterior oropharynx with mild erythema but without swelling, exudate, lesions, uvula midline. * Nose - nares without crusting or discharge * Neck - neck supple. Resp: Clear to auscultation bilaterally, normal work of breathing without accessory muscle usage. Card: Regular rate and rhythm with no murmurs, rubs or gallops. Extremities warm and well perfused. GI: Non-tender to palpation throughout all quadrants, no masses or organomegaly appreciated. : Deferred MSK: No visible deformities, strength and tone without visually appreciable deficit. Neuro: alert and oriented 3, no facial asymmetry, vision and hearing WNL. Heme/Lymph: Deferred Skin: Normal color with no visible lesions (other than noted above). Psych: Mood and affect appropriate. MDM Previous chart, nursing note, and vitals reviewed. A: 44-year-old male smoker presents for evaluation of a sore throat and infrequent nonproductive cough of days duration. DDx: COVID-19,viral rhinosinusitis, bacterial rhinosinusitis, pharyngitis (HSV vs viral NOS vs GAS vs bacterial NOS)], EBV, peritonsillar cellulitis, AUTOMATIC DEVELOPER, RPA , Leighton's angina, epiglottitis. Evaluation: Overall presentation most consistent with a viral rhinosinutisis, given the duration of symptoms and overall well compensated appearance, COVID- 19 testing nor antibiotic treatment are not currently indicated, rapid strep not indicated, oral mucosa without lesions consistent with HSV or candidiasis, low suspicion for peritonsillar cellulitis or abscess given the absence of asymmetric swelling or uvular deviation, RPA is unlikely as the patient can comfortably flex and extend their neck and swallow without difficulty. As phonation is intact and breathing is unlabored doubt epiglottitis. The floor of the mouth is without evidence of Leighton's angina. Lemierre's disease was considered but as the patient does not have signs of AUTOMATIC DEVELOPER or sepsis, further evaluation was not indicated. ED Course: No clinically significant changes. Disposition: Discharge with return to care as needed. Return to care indications provided. Impression: Rhinosinusitis. - Related Data Allergies Allergy/AdvReac Type Severity Reaction Status Date / Time bee venom protein (honey bee) Allergy Mild Anaphylactic Verified 05/13/19 03:41 Shock Home Meds: Home Meds . [No Known Home Meds] 04/13/19 [History] Past Medical History - Past Health History Medical/Surgical History: Denies Medical/Surgical History HEENT History: Reports: None Cardiovascular History: Reports: None Respiratory History: Reports: None Gastrointestinal History: Reports: None Genitourinary History: Reports: None Musculoskeletal History: Reports: None Neurological History: Reports: None Psychiatric History: Reports: None Endocrine/Metabolic History: Reports: None Hematologic History: Reports: None Immunologic History: Reports: None Oncologic (Cancer) History: Reports: None Dermatologic History: Reports: None - Infectious Disease History Infectious Disease History: Reports: Chicken Pox - Past Surgical History Head Surgeries/Procedures: Reports: None HEENT Surgical History: Reports: None Cardiovascular Surgical History: Reports: None Respiratory Surgical History: Reports: None GI Surgical History: Reports: Hernia, Abdominal Male Surgical History: Reports: None Endocrine Surgical History: Reports: None Neurological Surgical History: Reports: None Musculoskeletal Surgical History: Reports: Other (See Below) Other Musculoskeletal Surgeries/Procedures:: left knee surgery Oncologic Surgical History: Reports: None Dermatological Surgical History: Reports: None Social & Family History - Family History Family Medical History: Noncontributory - Tobacco Use Smoking Status *Q: Current Every Day Smoker Years of Tobacco use: 33 Packs/Tins Daily: 0.5 Used Tobacco, but Quit: No - Caffeine Use Caffeine Use: Reports: Soda - Recreational Drug Use Recreational Drug Use: No ED ROS GENERAL - Review of Systems Review Of Systems: See Below ED EXAM, GENERAL - Physical Exam Exam: See Below Course - Vital Signs Last Recorded V/S: Last Vital Signs Temp 35.9 C L 11/17/19 08:24 Pulse 79 11/17/19 08:24 Resp 18 11/17/19 08:24 BP 133/89 11/17/19 08:24 Pulse Ox 96 11/17/19 08:24 Departure - Departure Time of Disposition: 08:41 Disposition: Home, Self-Care 01 Clinical Impression: Rhinosinusitis - Discharge Information Referrals: PCP,None [Primary Care Provider] - Additional Instructions: You were in seen in the [facility] Emergency Department for evaluation of an upper respiratory tract infection, as we discussed there are many possible causes for your symptoms, including COVID- 19. There is a small possibility that you may have a significant worsening of your symptoms require hospitalization, if you have any further concerns about your health please return immediately to the emergency department. Please read and follow all of the instructions below. Please follow up with your primary care physician as needed. When calling for follow-up care, please make the office aware that this follow-up is from your recent emergency room visit. If for any reason you are refused follow-up, please contact the [facility] Emergency Department at and asked to speak to the emergency department charge nurse. Your care today was limited to identifying and treating emergent medical problems only. Many people have subtle differences in their test results that require follow up with their outpatient physician(s) to correctly determine if this represents a normal variation or concerning abnormality with respect to your specific health. The care given to you today was limited to identifying and treating emergent medical problems - you need to request a copy of all of your medical records from today's visit and follow up with your outpatient physician(s) to review both today's visit and your overall health. If you have any new symptoms or if you are at all concerned about your health please return immediately to the emergency department. Prescriptions: If you are uninsured or have financial difficulties with filling your prescription(s), you may consider using a free pharmacy discount service such as [employer] (Bang[employer]) or [employer] (sickweather). These services allow you to search for a medication on your phone (or computer) and obtain a coupon that usually has a significant discount from the list méndez at a pharmacy. Your physician as well as [facility] does not have a financial relationship with either of these services. You may also wish to speak with your physician to determine if lower cost prescriptions are possible. Obtaining primary care: 1. [facility] provides pediatrics (children), family medicine (children, adults, and some obstetrical care), and internal medicine (adults). Further specialty care is also available. Same day appointments are available. They may be contacted at [phone] and are open Thursday through Thursday 8 AM to 5 PM. The [facility] are located at [facility], [address] [place] [address]. 2. [facility] offers family medicine, internal medicine, [facility], and further specialty care. [facility] may be contacted at [phone]. [facility] is located at [address] [place] [address]. 3. If you have health insurance, please also contact your insurer for a list of accepting providers under your policy, you may contact these providers for further health care. Occupational health: Work related injuries may consider following up with [facility], . Occupational health services are located at [address] [place] [phone] and are open Thursday through Thursday from 7: 30 am to 5:00 pm. Obstetrical and Gynecological Care: [facility], , Thursday through Thursday 8 AM to 5 PM. [address] [facility] [place] [address]. Eyecare: If you have an eye injury you should follow up with your hog ribber or with [facility], at [phone] or [phone] , they are located at [address] [place] [address]. Dental Care Cayetano Ramos DDS. [address] [facility].[place], [place]. Ph. [phone] Hilario Ramos DDS MS. [address] [facility] [address], [place], [place]. Ph. Allen Jeffers DDS. [address] [place] [address]. Ph. [phone] Hi Pruitt DDS. [address] [facility] 4 [place], [place]. Ph. [phone] Helio Dumont DDS PC. [address] [facility] [address] [place], [place]. Ph. Lorna Kitchen DDS. [address] [facility]. Ph. [phone] [facility]. [address] [place], [place]. Ph. [phone] [facility]. [address], [place], [place]. Ph. [phone] [facility] [address] [place] [phone]. Ph. [facility]. [address] [place] [address] [address] [place], [place]. Ph. [facility]. [address] [place]. Ph. Viral Syndrome You are believed to have a viral infection of the respiratory tract. These infections may cause chills, fever, cough, headache, body aches, and sore throat. Depending upon the virus, you may have mild to more severe symptoms. There is a possibility that your symptoms may be due to SARS-COV-2 (commonly called coronavirus), the virus that causes COVID-19. COVID-19 is generally a mild to moderate illness, however some people experience a severe or life- threatening infection. Based on your evaluation in the emergency department discharge home with self-monitoring was appropriate at the time of your care. Your discharge instructions below are listed for both COVID-19 as well as for more common viral infections (common cold viruses as well as influenza). COVID-19 COVID-19 is the disease caused by a new type of coronavirus turned SARS-COV-2. There is concern that your symptoms today may be due to SARS-COV-2. Based on your symptoms today confirmatory testing was not indicated, however you should treat your infection as a suspected COVID-19 infection.[Based on your symptoms today, there are pending laboratory studies to evaluate whether you have SARS- COV-19. The study should take several days. It is important to note that these tests are not perfect. That means some people with COVID-19 will falsely test negative, and others without COVID-19 may test positive. While these false results are believe to be a minority of the tests, it is essential that you be aware that you might have COVID-19 despite negative testing. Stay home except to get medical care: People who are mildly ill with COVID-19 are able to recover at home. Do not leave, except to get medical care. Do not visit public areas. Stay in touch with your doctor. Call before you get medical care. Be sure to get care if you feel worse or you think it is an emergency. Avoid public transportation: Avoid using public transportation, ride-sharing , or taxis. Separate yourself from other people in your home, this is known as home isolation Stay away from others as much as possible, you should stay in a specific sick room and away from other people in your home. Use a separate bathroom, if available. You should restrict contact with pets and other animals, just like you would around other people. Although there have not been reports of pets or other animals becoming sick with COVID-19, it is still recommended that people with the virus limit contact with animals until more information is known. When possible, have another member of your household care for your animals while you are sick with COVID-19. If you must care for your pet or be around animals while you are sick, wash your hands before and after you interact with them. See COVID-19 and Animals for more information. If you have a medical appointment, call your doctors office or emergency department, and tell them you have or may have COVID-19. This will help the office protect themselves and other patients. If you are sick you should wear a facemask when you are around other people and before you enter a healthcare providers office. If you are caring for others: If the person who is sick is not able to wear a facemask (for example, because it causes trouble breathing), then people who live in the home should stay in a different room. When caregivers enter the room of the sick person, they should wear a facemask. Visitors, other than caregivers, are not recommended. Cover your mouth and nose with a tissue when you cough or sneeze. Throw used tissues in a lined trash can. Immediately wash your hands with soap and water for at least 20 seconds. If soap and water are not available, clean your hands with an alcohol-based hand incendiary powder mixer that contains at least 60% alcohol. Wash your hands often with soap and water for at least 20 seconds. This is especially important after blowing your nose, coughing, or sneezing; going to the bathroom; and before eating or preparing food. If soap and water are not available, use an alcohol-based hand incendiary powder mixer with at least 60% alcohol, covering all surfaces of your hands and rubbing them together until they feel dry. Do not share dishes, drinking glasses, cups, eating utensils, towels, or bedding with other people in your home. After using these items, wash them thoroughly with soap and water or put in the sap bobj developer. Clean high-touch surfaces in your isolation area (sick room and bathroom) every day; let a caregiver clean and disinfect high-touch surfaces in other areas of the home. Routinely clean high-touch surfaces in your sick room and bathroom. Let someone else clean and disinfect surfaces in common areas, but not your bedroom and bathroom. If a caregiver or other person needs to clean and disinfect a sick persons bedroom or bathroom, they should do so on an as-needed basis. The caregiver/ other person should wear a mask and wait as long as possible after the sick person has used the bathroom. Clean and disinfect areas that may have blood, stool, or body fluids on them. Household programming intern and disinfectants: Clean the area or item with soap and water or another detergent if it is dirty. Then, use a household disinfectant. Be sure to follow the instructions on the label to ensure safe and effective use of the product. Many products recommend keeping the surface wet for several minutes to ensure germs are killed. Many also recommend precautions such as wearing gloves and making sure you have good ventilation during use of the product. Monitor your symptoms Seek medical attention, but call first: seek medical care right away if your illness is worsening (for example, if you have difficulty breathing). Before going to the doctors office or emergency room, call ahead and tell them your symptoms. They will tell you what to do. If possible, put on a facemask before you enter the building. If you cant put on a facemask, try to keep a safe distance from other people (at least 6 feet away). This will help protect the people in the office or waiting room. Follow care instructions from your healthcare provider and local health department: Your local health authorities will give instructions on checking your symptoms and reporting information. If you develop emergency warning signs for COVID-19 get medical attention immediately. Emergency warning signs include*: o Difficulty breathing or shortness of breath o Persistent pain or pressure in the chest o New confusion or inability to arouse o Bluish lips or face o *This list is not all inclusive. Please consult your medical provider for any other symptoms that are severe or concerning. Call 911 if you have a medical emergency: If you have a medical emergency and need to call 911, notify the electric crane operator that you have or think you might have , COVID-19. If possible, put on a facemask before medical help arrives. People with COVID-19 who have stayed home (home isolated) can stop home isolation under the following conditions. If you will not have a test to determine if you are still contagious, you can leave home after these three things have happened: You have had no fever for at least 72 hours (that is three full days of no fever without the use medicine that reduces fevers) AND other symptoms have improved (for example, when your cough or shortness of breath have improved) AND at least 7 days have passed since your symptoms first appeared If you will be tested to determine if you are still contagious, you can leave home after these three things have happened: You no longer have a fever (without the use medicine that reduces fevers) AND other symptoms have improved (for example, when your cough or shortness of breath have improved) AND you received two negative tests in a row, 24 hours apart. Your doctor will follow CDC guidelines. Want more information on COVID-19? Please visit the following websites. Center for Disease Control and Prevention. https://www.cdc.gov/coronavirus/2019 -ncov/index.html [employer]. https://www.acep.org/by.../infectious -diseases/coronavirus/ Viral infections (not COVID-19) In typical viral infections, the worst symptoms typically last a 2-5 days. Cough and fatigue may continue for as long as 7 to 10 days. Viral respiratory infections are highly contagious. Symptoms will not be reduced or improved by taking an antibiotic. Antibiotics are medications that kill bacteria, not viruses. Rarely these infections can lead to an infection of the sinuses, lungs , or middle ear. However antibiotics at this point in your illness antibiotics will not help prevent these uncommon complications. Home Care Instructions: * Care for viral infections will not shorten your illness but can help reduce your symptoms. * Please stay well hydrated and attempt to get plenty of sleep. * You may take both ibuprofen and acetaminophen as directed on the bottle for relief of fever, chills, and muscle aches. * If you have a severe cough you may take an heou-omm-rijgkol cough medication containing dextromethorphan. * Continue to cover your cough and wash your hands often. * Read the package instructions and warnings on any medication that you are taking. Return to the Emergency Department if you have: * Fast breathing, trouble breathing, or shortness of breath * Bluish or collins skin color * Not drinking enough fluids * Severe or persistent vomiting * Not waking up or not interacting * Pain or pressure in the chest or abdomen * Sudden dizziness * Confusion * Or if you are otherwise concerned about your health Please follow-up your primary care provider or return to the emergency department if: * Your symptoms fail to improve over the next 4-5 days. * Your symptoms improve but then significantly worsen - this may be a sign of a bacterial infection which will need to be treated. You are otherwise concerned about your health. Cough Home Care Instructions You were seen in the emergency department today for evaluation of your cough. Based upon the evaluation today your cough does not appear to be caused by bacterial pneumonia, rather a virus is the cause of your cough. These types of infections cannot be treated by antibiotics, your body will fight this infection and clear the virus. Most people get better in 7-10 days. It is not uncommon to have a mild nonproductive cough last for up to several weeks following the resolution of your illness. If you continue have a cough beyond 7- 10 days please follow-up with your primary care physician. You may do the following treatments to reduce your symptoms: * Btel-odq-nopxuer cough medications containing dextromethorphan may reduce the frequency and severity of your coughing. Please take as directed on the bottle. Please read all warnings on the bottle. Do not take this medication if you have any allergies to any of the ingredients listed on the bottle. * Ibuprofen may be used to reduce fever, pain, and inflammation. You may take 600 mg (three 200 mg qmob-xbo-arwvpiv tablets) every 6-8 hours. Please read the warnings below regarding ibuprofen. Do not take this medication if you are or allergic to ibuprofen, Motrin, Aleve, or naproxen. * Please stay well-hydrated and get adequate rest. * If you are a smoker please stop smoking. * Jtsi-iug-iolyrce lozenges or tea with honey may be used for sore throat. Please return to the emergency department if any of the following occur: * Increasing fever. * Worsening cough or a cough that becomes productive of thick sputum. * A cough that temporarily gets better and then over the several days get significantly worse. This may occur if you developed a bacterial pneumonia following your viral infection. This rarely occurs and there is no prevention at this point in your infection. * Chest pain. * Shortness of breath or difficulty breathing. * If you are otherwise concerned about your health. Sepsis Event Note - Evaluation Sepsis Screening Result: No Definite Risk - Focused Exam Vital Signs: Vital Signs Temp Pulse Resp BP Pulse Ox 11/17/19 08:24 35.9 C L 79 18 133/89 96 Date Exam was Performed: 11/17/19 Time Exam was Performed: 08:41
== END 2019-11-17 09:14 | disposition home or self-care (01) ==
LOC: MW.ED 08:04
CPT/HCPCS: 99282; 99283

== ENCOUNTER 2020-06-13 06:50 | Emergency (ER) | payer SELFPAY ==
[2020-06-13] MEDS: Ibuprofen 600 MG Tab PO ONE (07:29)
[2020-06-13] MEDS: Cyclobenzaprine 10 MG Tab PO ONE (07:30)
--- NOTE | 2020-06-13 07:45 | EDM.PDOC ---
ED HPI GENERAL MEDICAL PROBLEM - General Chief Complaint: General Stated Complaint: LEFT ARM WEAKNESS Time Seen by Provider: 06/13/20 07:10 - History of Present Illness INITIAL COMMENTS - FREE TEXT/NARRATIVE: HISTORY AND PHYSICAL: History of present illness: This is a 45-year-old gentleman with no history significant for hypertension, diabetes, liver, lung, kidney, cholesterol, family history of coronary disease, prior history of coronary disease who presents ER today secondary to pain in his neck radiating to his left arm. Patient reports that he works in [employer] and does heavy lifting and is in awkward positions. Patient reports that the pain started Thursday. Patient reports the pain increases with movement of his neck. Patient denies any chest pain, shortness of breath, nausea, vomiting. Patient reports also he injured his left ankle and is concerned that it may be broken. He reports that the injury occurred approximately 1 week ago. Patient denies any recent fevers, shakes, chills, nausea, vomiting, diarrhea, dysuria, frequency, urgency, abdominal pain. Patient reports no exertional component or relief with rest. Patient reports that the only thing that alleviates his discomfort is position of his neck and not moving it. Patient reports he has been taking a strength acetaminophen for his left ankle pain that has been also assisting his left shoulder and neck pain. Patient reports he injured his left ankle approximately 1 week ago with an inversion injury. Patient reports he has not seek medical attention for it. Patient reports positive tobacco, occasional alcohol, approximately 2-3 times a week, and no drugs. Patient reports that he lives in apartment alone. Patient reports that he works on [employer]. Review of systems: As per history of present illness and below otherwise all systems reviewed and negative. Past medical history: As per history of present illness and as reviewed below otherwise noncontributory. Surgical history: As per history of present illness and as reviewed below otherwise noncontributory. Social history: No reported history of drug or alcohol abuse. Family history: As per history of present illness and as reviewed below otherwise noncontributory. Physical exam: Constitutional: Patient is oriented to person, place, and time. Appears well- developed and well-nourished. No distress. HEENT: Moist mucous membranes Head: Normocephalic and atraumatic Eyes: Right eye exhibits no discharge. Left eye exhibits no discharge. No scleral icterus Neck: Normal range of motion. No tracheal deviation present. Cardiovascular: Normal rate and regular rhythm. Pulmonary: Effort normal, no respiratory distress. Abdominal: No distention Musculoskeletal: Normal range of motion Neurologic: Alert and oriented to person, place and time. Skin: [place], warm and dry. Psychiatric: Normal mood and affect. Behavior is normal. Judgment and thought content normal. Nursing note and vital signs have been reviewed Patient is ER physical exam is significant for tenderness to palpation diffusely to his neck greatest in any left paraspinal region. Patient is reproducible pain with flexion rotation of his neck. Patient reports pain increases when flexing it to the left. Patient has mild discomfort with movement of his left arm. Patient has tenderness palpation to his lateral malleolus. Patient has no significant soft tissue swelling or ecchymosis. Diagnostics: EKG: Normal sinus rhythm heart rate of [address]-T wave abnormalities Normal axis No evidence of ST elevation [place] As interpreted by ER physician: Saul X-ray left ankle: Patient has a minimally displaced fracture of his distal left fibula. Therapeutics: Patient has been given Toradol IV as well as Flexeril to assist his pain in his neck. Patient will be placed in a cam boot and crutches and will be referred to orthopedics for further evaluation and management of his shoulder pain as well as his ankle fracture. DME note: Crutches Crutches will be ordered secondary to patient with fracture to his left distal fibula. Patient will benefit from crutches secondary to assisting with stability and weightbearing for healing of fracture. Patient will need to utilize crutches for 6 weeks or until cleared by orthopedic surgery. DME note: Walking boot left Cam walker will be ordered secondary patient with fracture to his left distal fibula. Patient will benefit from the cam walker by assisting with providing stability of distal fibular fracture and assisting with weightbearing for healing of fracture. Patient will need to utilize cam walker for 6 weeks or until cleared by orthopedic surgery. Assessment and plan: This is a 45-year-old gentleman who presents ER today secondary to pain to his left neck and shoulder. Patient's pain appears to be related to musculoskeletal pain. Patient's EKG does not show any significant abnormalities. Patient's presentation does not appear to be consistent with a cardiac etiology of his pain. Patient's pain is most consistent with a radiculopathy arising from pain from his neck. Patient be given ibuprofen and Flexeril to assist with his discomfort. Patient with a fracture to his left distal fibula. Patient was placed in a cam walker and crutches. Patient will be referred to orthopedic surgery for further management of his fracture. Patient will need to continue taking his Tylenol, ibuprofen, and Flexeril to assist with his pain and discomfort. Reassessment at the time of disposition demonstrates that the patient is in no acute distress. The patient has remained stable throughout the entire ED visit and is without objective evidence for acute process requiring urgent intervention or hospitalization. The patient is stable for discharge, counseling is provided as documented above, discussed symptomatic treatment and specific conditions for return. I have spoken with the patient/caregiver and discussed todays findings, in addition to providing specific details for the plan of care. Questions are answered and there is agreement with the plan. Definitive disposition and diagnosis as appropriate pending reevaluation and review of above. 8:02 AM: Patient refusing cam walker and crutches. Patient reports that he has been walking on it and is just, continue using his Adria wrap. I have taken pictures of the fractures utilizing the patient's phone and showed him the location of the fracture and discussed with him in detail why I feel that it is important for him to utilize a cam walker and crutches to assist with healing. Patient understands that by not immobilizing and weightbearing that he runs the threat of long-term chronic pain, longer time of feeling, potential risk of arthritis. Patient is accepting of these risks and still refusing the cam walker. Patient reports that he has been walking on it and just thinks that he needs an Adria wrap at this time. I told the patient that I would respect his decision even if I disagreed with it and that he should return to the ER if he should change his mind. left shoulder Pain Score (Numeric/FACES): 8 - Related Data Allergies Allergy/AdvReac Type Severity Reaction Status Date / Time bee venom protein (honey bee) Allergy Mild Anaphylactic Verified 06/13/20 07:00 Shock Home Meds: Home Meds Cyclobenzaprine [Flexeril] 10 mg PO TID PRN #20 tab 06/13/20 [Rx] Ibuprofen 600 mg PO Q6HR PRN #30 tablet 06/13/20 [Rx] Past Medical History - Past Health History Medical/Surgical History: Denies Medical/Surgical History HEENT History: Reports: None Cardiovascular History: Reports: None Respiratory History: Reports: None Gastrointestinal History: Reports: None Genitourinary History: Reports: None Musculoskeletal History: Reports: None Neurological History: Reports: None Psychiatric History: Reports: None Endocrine/Metabolic History: Reports: None Hematologic History: Reports: None Immunologic History: Reports: None Oncologic (Cancer) History: Reports: None Dermatologic History: Reports: None - Infectious Disease History Infectious Disease History: Reports: None - Past Surgical History Head Surgeries/Procedures: Reports: None HEENT Surgical History: Reports: None Cardiovascular Surgical History: Reports: None Respiratory Surgical History: Reports: None GI Surgical History: Reports: Hernia, Abdominal Male Surgical History: Reports: None Endocrine Surgical History: Reports: None Neurological Surgical History: Reports: None Musculoskeletal Surgical History: Reports: Other (See Below) Other Musculoskeletal Surgeries/Procedures:: left knee surgery Oncologic Surgical History: Reports: None Dermatological Surgical History: Reports: None Social & Family History - Family History Family Medical History: Noncontributory - Tobacco Use Tobacco Use Status *Q: Current Every Day Tobacco User Years of Tobacco use: 34 Packs/Tins Daily: 0.5 - Caffeine Use Caffeine Use: Reports: None - Recreational Drug Use Recreational Drug Use: No ED ROS GENERAL - Review of Systems Review Of Systems: See Below ED EXAM, GENERAL - Physical Exam Exam: See Below #1 Interpretation Rhythm: NSR [place]: Normal P-Wave: Present QRS: Normal QT: Normal EKG Interpretation Comments: EKG: Normal sinus rhythm heart rate of [address]-T wave abnormalities Normal axis No evidence of ST elevation [place] As interpreted by ER physician: Saul Course - Vital Signs Last Recorded V/S: Last Vital Signs Temp 99 F 06/13/20 07:00 Pulse 94 06/13/20 08:00 Resp 18 06/13/20 08:00 BP 137/97 H 06/13/20 08:00 Pulse Ox 95 06/13/20 08:00 - Orders/Labs/Meds Orders: Active Orders 24 hr Category Date Time Status DME for Discharge [COMM] Stat Oth 06/13/20 07:45 Ordered Meds: Medications Discontinued Medications Generic Name Dose Route Start Last Admin Trade Name Freq PRN Reason Stop Dose Admin Cyclobenzaprine HCl 10 mg 06/13/20 07:23 06/13/20 07:30 Flexeril PO 06/13/20 07:24 10 mg ONETIME ONE Administration Ibuprofen 600 mg 06/13/20 07:23 06/13/20 07:29 Motrin PO 06/13/20 07:24 600 mg ONETIME ONE Administration Departure - Departure Time of Disposition: 07:49 Disposition: Home, Self-Care 01 Condition: Good Clinical Impression: Torticollis, acquired, Radiculopathy, cervical, Closed left ankle fracture - Discharge Information Prescriptions: Cyclobenzaprine [Flexeril] 10 mg PO TID PRN #20 tab PRN Reason: Muscle Spasm Ibuprofen 600 mg PO Q6HR PRN #30 tablet PRN Reason: Pain Instructions: Crutch Use, Adult, [id number], Nondisplaced Fibular Ankle Fracture Treated With Immobilization, Adult, Cast or Splint Care, Adult, [id number] Referrals: PCP,None [Primary Care Provider] - Forms: ED Department Discharge Additional Instructions: You have been seen and evaluated today in the ER for pain to your left neck/shoulder as well as a injury to your left ankle from last week. The pain that you are experiencing in your left neck and shoulder is most likely secondary to a pinched nerve. The pain in your left ankle reveals that you do have a fracture of your fibula. You will be placed in a cam walker and given crutches to utilize. We will give the phone number of our orthopedic doctor to call today to make an appointment for follow-up so they can make sure that the healing of your ankle is occurring appropriately. You will be given a prescription for ibuprofen 600 mg to take every 6 hours as needed. You will also be given a prescription for Flexeril 10 mg to take 3 times a day to help relax the muscles in your neck. Continue taking the acetaminophen that you have been taking for your ankle in addition to the ibuprofen. At this time you are refusing to utilize the cam walker and crutches. He understand my concerns regarding the possibility of developing chronic pain, prolonged healing of the fracture as well as potential for nonhealing of the fracture. We will respect her decision regarding not wanting to utilize the cam walker for stability and crutches for weightbearing. Please return to the ER if she should change her mind about your decision and would want the cam walker and crutches. [facility] [address] [place] [address], [address] [place] [address] We will also be given the phone number for our primary care clinics to call to make an appointment to see them so they can assist you with your tobacco use as well as other medical issues that need to be addressed at your age. [facility] - [facility] [address] [place] [address] [facility] [address] [place] [id number] The following information is given to patients seen in the emergency department who are being discharged to home. This information is to outline your options for follow-up care. We provide all patients seen in our emergency department with a follow-up referral. The need for follow-up, as well as the timing and circumstances, are variable depending upon the specifics of your emergency department visit. If you don't have a primary care physician on staff, we will provide you with a referral. We always advise you to contact your personal physician following an emergency department visit to inform them of the circumstance of the visit and for follow-up with them and/or the need for any referrals to a consulting specialist. The emergency department will also refer you to a specialist when appropriate. This referral assures that you have the opportunity for follow-up care with a specialist. All of these measure are taken in an effort to provide you with optimal care, which includes your follow-up. Under all circumstances we always encourage you to contact your private physician who remains a resource for coordinating your care. When calling for follow-up care, please make the office aware that this follow-up is from your recent emergency room visit. If for any reason you are refused follow-up, please contact the [facility] Emergency Department at and asked to speak to the emergency department charge nurse. Sepsis Event Note (ED) - Evaluation Sepsis Screening Result: No Definite Risk - Focused Exam Vital Signs: Vital Signs Temp Pulse Resp BP Pulse Ox 06/13/20 08:00 94 18 137/97 H 95 06/13/20 07:31 103 H 16 132/94 H 96 06/13/20 07:00 99 F 86 18 139/93 H 98 - My Orders Last 24 Hours: My Active Orders 06/13/20 07:45 DME for Discharge [COMM] Stat - Assessment/Plan Last 24 Hours: My Active Orders 06/13/20 07:45 DME for Discharge [COMM] Stat
--- NOTE | 2020-06-13 07:56 | CR ---
Indication: Pain Technique: A total of three views of the left ankle were acquired. Comparison: 11/18/2016 Findings: Bones: Oblique fracture of the distal fibula above the syndesmosis. Maximum displacement is about 3 millimeters. The ankle mortise and syndesmosis appear to be intact. Joint spaces: Unremarkable. Soft tissues: Unremarkable. Impression: Distal left fibula fracture Dictated by Hood James MD @ Jun 13 2020 7:53AM Signed by Dr. Hood James @ Jun 13 2020 7:55AM
[2020-06-13 08:11] VITALS: BP 137/97; PULSE 94
== END 2020-06-13 08:11 | disposition home or self-care (01) ==
LOC: MW.ED 06:50
DX: S82.832A Other fracture of upper and lower end of left fibula, initial encounter for closed fracture (principal); S13.4XXA Sprain of ligaments of cervical spine, initial encounter; F17.210 Nicotine dependence, cigarettes, uncomplicated; M54.12 Radiculopathy, cervical region; Z91.030 Bee allergy status; X50.9XXA Other and unspecified overexertion or strenuous movements or postures, initial encounter
CPT/HCPCS: 73610; 93005; 99284; A9270